=== PATIENT | female | born 1985 | race Caucasian/White ===

== ENCOUNTER 2017-08-04 09:46 | Inpatient (IN) | payer BC ==
[~2017-08-04] VITALS: Ht 165.1 cm; Wt 99.5 kg
[~2017-08-04 09:46] MED LIST: BCP TD; LEVOXYL0.05 MG PO; MICRONASE2.5 MG; MOTRIN 600600 MG/TAB PO; PERCOCET 325 MG1 TA2 PO; PREDNISONE20 MG PO
[2017-09-14] VITALS (36 sets, daily range): BP systolic 97–152; BP diastolic 52–89; PULSE 59–88; TEMP 97.8–98.2
[2017-09-14] MEDS ORDERED: PRENATAL1 TA7 PO (09:17)
[2017-09-14] MEDS ORDERED: SYNTHROID0.1 MG/TAB PO (09:18)
[2017-09-14] MEDS ORDERED: ZOLOFT 50MG50 MG PO (09:18)
[2017-09-14] MEDS ORDERED: DIABETA 5MG5 MG/TAB PO (09:18)
[2017-09-14 10:21] LABS: BASO % 0.2 % (0.0-2.0); EOS # 0.1 (0.0-0.7); EOS % 1.2 % (0-4.0); GRAN # 6.6 (1.4-6.5); GRAN % 74.3 % (42.2-75.2); HEMATOCRIT 39.1 % (37.0-47.0); HEMOGLOBIN 12.4 g/dl (12.5-16.0); LYMPH # 1.6 (1.2-3.4); LYMPH % 17.9 % (20.0-51.0); MEAN CELL VOLUME 77 fl (80.0-100.0); MEAN CORPUSCULAR HEMOGLOBIN 25 pg (27.0-31.0); MEAN CORPUSCULAR HGB CONC 32 g/dl (33.0-37.0); MEAN PLATELET VOLUME 10.8 fl (7.4-10.4); MONO # 0.5 (0.1-0.6); MONO % 6.1 % (1.7-9.3); PLATELET COUNT 172 K/mm3 (130-400); RED BLOOD COUNT 5.05 M/mm3 (4.10-5.30); REDCELL DISTRIBUTION WIDTH-CV 17.9 % (11.5-14.5)
[2017-09-15] VITALS: BP 108/55; PULSE 74; TEMP 98.2
[2017-09-15 05:10] VITALS: BP 120/67; PULSE 72; TEMP 98.5
[2017-09-15 07:00] VITALS: BP 125/73; PULSE 69; TEMP 98.5
[2017-09-15] MEDS ORDERED: MOTRIN 800800 MG/TAB PO (09:38)
[2017-09-15 15:30] VITALS: BP 126/58; PULSE 67; TEMP 98.1
[2017-09-15 19:55] VITALS: BP 130/83; PULSE 66; TEMP 97.7
== END 2017-09-16 11:00 | disposition home or self-care (01) | DRG 775 ==
LOC: LDR 09-14 07:13 → OB 09-14 19:30 → EDSTATUS 09-15 07:13 → LDRO 09-15 09:45 → OB 09-16 11:00
PROVIDERS: Obstetrics & Gynecology
PROC: 10E0XZZ Delivery of Products of Conception, External Approach (ICD-10-PCS; principal; 2017-09-14)
PROC: 0KQM0ZZ Repair Perineum Muscle, Open Approach (ICD-10-PCS; 2017-09-14)
PROC: 3E033VJ Introduction of Other Hormone into Peripheral Vein, Percutaneous Approach (ICD-10-PCS; 2017-09-14)
DX: O24.420 Gestational diabetes mellitus in childbirth, diet controlled (principal); O70.1 Second degree perineal laceration during delivery; O99.284 Endocrine, nutritional and metabolic diseases complicating childbirth; E03.9 Hypothyroidism, unspecified; Z3A.39 39 weeks gestation of pregnancy; Z37.0 Single live birth
CPT/HCPCS: J2590; J2795; J7030